=== PATIENT | male | born 1960 | race Caucasian/White ===

== ENCOUNTER 2016-10-23 17:14 | Emergency (ER) | payer BC, OTHER ==
[~2016-10-23] VITALS: Ht 188 cm; Wt 95.5 kg
[2016-10-23 18:39] VITALS: BP 126/71
== END 2016-10-23 18:39 | disposition home or self-care (01) ==
LOC: ED 17:14
DX: S61.012A Laceration without foreign body of left thumb without damage to nail, initial encounter (principal); S50.811A Abrasion of right forearm, initial encounter; S00.03XA Contusion of scalp, initial encounter; S90.811A Abrasion, right foot, initial encounter; W25.XXXA Contact with sharp glass, initial encounter; Y92.002 Bathroom of unspecified non-institutional (private) residence as the place of occurrence of the external cause; Z23 Encounter for immunization
CPT/HCPCS: 90715; A4550; A4649